=== PATIENT | female | born 1980 | race Two or more races ===

== ENCOUNTER 2016-12-18 18:10 | Emergency (ER) | payer OTHER ==
[~2016-12-18] VITALS: Ht 172.7 cm; Wt 100.8 kg
[2016-12-18 19:17] LABS: HEMATOCRIT 43.4 % (34.6-47.8); HEMOGLOBIN 14.7 g/dL (11.7-16.4); WHITE BLOOD COUNT 8.5 x10^3/uL (3.4-10)
[2016-12-18 19:26] LABS: BLOOD UREA NITROGEN 13 mg/dL (7-18)
[2016-12-18 19:30] LABS: ASPARTATE AMINO TRANSFERASE 11 U/L (15-37); C-REACTIVE PROTEIN, QUANT 0.33 mg/dL (0.02-0.49)
[2016-12-18] MEDS ORDERED: BUPR300T49 PO (21:02)
[2016-12-18] MEDS ORDERED: TRAZ150T62 PO (21:02)
[2016-12-18] MEDS ORDERED: LINA290C PO (21:02)
[2016-12-18] MEDS ORDERED: MIDAZOLAM 1 MG/ML, 2ML IVPush ONE (21:30)
[2016-12-18] MEDS ORDERED: GADOBUTROL 7.5 MMOL/7.5 ML PFS ONE (22:09)
[2016-12-18] MEDS ORDERED: MIDAZOLAM 1 MG/ML, 5ML ONE (22:42)
[2016-12-18] MEDS ORDERED: METOCLOPRAMIDE 5 MG/ML, 2ML ONE (23:22)
[2016-12-18] MEDS ORDERED: DIPHENHYDRAMINE 50 MG/ML, 1ML ONE (23:22)
[2016-12-18] MEDS ORDERED: MORPHINE SULFATE 4 MG/ML, 1ML ONE (23:22)
[2016-12-18] MEDS ORDERED: MORPHINE SULFATE 4 MG/ML, 1ML IVPush PRN (23:30)
[2016-12-18] MEDS ORDERED: SODIUM CHLORIDE 0.9% 1,000ML IVBOLUS ONE (23:30)
[2016-12-18] MEDS ORDERED: DIPHENHYDRAMINE 50 MG/ML, 1ML IVPush ONE (23:30)
[2016-12-18] MEDS ORDERED: MIDAZOLAM 1 MG/ML, 5ML IM ONE (23:30)
[2016-12-18] MEDS ORDERED: METOCLOPRAMIDE 5 MG/ML, 2ML IVPush ONE (23:30)
[2016-12-18 23:32] LABS: GLUCOSE, CSF 48 mg/dL (40-80)
[2016-12-20 10:53] LABS: RAPID PLASMA REAGIN Nonreactive (Nonreactive)
[2016-12-20 14:07] LABS: SPECIMEN SOURCE CSF (.); STREPTOCOCCUS PNEUMONIAE AG Negative (Negative)
[2016-12-21 12:07] LABS: BETA STREP (GROUP B) AG Negative (Negative); HAEMOPHILUS INFLUENZAE B AG Negative (Negative); NEISSERIA MENINGITIDIS AG Negative (Negative)
== END 2016-12-19 01:03 | disposition home or self-care (01) ==
LOC: ED 20:56 → MERGE 20:56 → ED 12-19 01:03
DX: R51 Headache (principal); G89.29 Other chronic pain; Z88.2 Allergy status to sulfonamides
CPT/HCPCS: 36415; 62270; 70450; 70553; 80053; 82040; 82042; 82164; 82784; 82945; 83520; 83873; 84157; 84703; 85025; 85549; 85651; 86038; 86140; 86147; 86256; 86480; 86592; 86645; 86695; 86696; 86762; 86777; 86778; 87070; 87075; 87102; 87116; 87205; 87206; 87252; 87802; 87899; 89051; 96361; 96372; 96374; 96375; 99285; A9585; J1200; J2250; J2765; J7030